=== PATIENT | male | born 2000 | race Caucasian/White ===

== ENCOUNTER → 2023-10-29 | Emergency (ER) | payer OTHER ==
[~2023-10-29] VITALS: Ht 175.3 cm; Wt 76.2 kg
[~2023-10-29] MED LIST: CLINDAMYCIN PHOSPHATE 150 MG/ML (600mg) IM ONE; LIDOCAINE HCL 1% 10ML VIAL IJ ONE; TETANUS & DIPHTHERIA TOX,ADULT 0.5 ML VIAL IM ONE
== END | disposition home or self-care (01) ==
LOC: ER 18:02
DX: S31.010A Laceration without foreign body of lower back and pelvis without penetration into retroperitoneum, initial encounter (principal); S30.810A Abrasion of lower back and pelvis, initial encounter; W18.2XXA Fall in (into) shower or empty bathtub, initial encounter; Y93.E1 Activity, personal bathing and showering; Y92.59 Other trade areas as the place of occurrence of the external cause
CPT/HCPCS: 12032; 96372; 99283; J3490